=== PATIENT | female | born 1985 | race Two or more races ===

== ENCOUNTER 2023-09-10 01:31 | Emergency (ER) | payer MEDICAID ==
[~2023-09-10] VITALS: Ht 167.6 cm; Wt 94.1 kg
[~2023-09-10 01:31] MED LIST: DOXY-286 PO; METR375C PO
[2023-09-10] MEDS ORDERED: DIPH2.5T73 PO (02:34)
[2023-09-10 03:01] LABS: Urine Bacteria FEW /hpf (None Seen); Urine Blood Negative /uL (Negative); Urine Clarity Clear (Clear); Urine Color Light-Yellow (Yellow); Urine Hyaline Cast FEW /lpf (0 - 2); Urine Mucus FEW (None Seen); Urine Protein, UAD Negative (Negative); Urine Urobilinogen Normal (Negative); Urine WBC 10 /hpf (0 - 5)
[2023-09-10 03:20] VITALS: BP 137/86; PULSE 83; RESP 16; TEMP 98.3; O2SAT 99
[2023-09-10] MEDS: DIPHENOXYLATE W/ATROPINE 2.5 MG TAB PO ONE (03:23)
== END 2023-09-10 03:19 | disposition home or self-care (01) ==
LOC: ER 01:31
DX: R19.7 Diarrhea, unspecified (principal); E11.9 Type 2 diabetes mellitus without complications; E78.5 Hyperlipidemia, unspecified; Z79.899 Other long term (current) drug therapy
CPT/HCPCS: 81001

== ENCOUNTER 2024-05-22 19:12 | Inpatient (IN) | payer MEDICAID ==
[~2024-05-22] VITALS: Ht 167.6 cm; Wt 88.8 kg
[~2024-05-22 19:12] MED LIST changes: +DIPH2.5T73 PO
--- NOTE | 2024-05-22 19:44 | ED.PDOC ---
GI ASSESSMENT HPI Comments 38y M who presents to the ED for chief complaint of abdominal pain. Pt states she has been having abdominal pain with associated constipation for the past 2 days. Pt states her abdominal pain is pressure like in nature, constant, R side of abdomen, rating the pain 6/10, with no associated exacerbating or relieving factors. Pt has associated constipation, chills, rectal bleeding and subjective fevers. Pt otherwise denies any recent sick contacts or changes to diet. Pt otherwise denies any other symptoms at this time. Time Seen by MD: 19:37 Reviewed Notes: Nurses Notes, Medications, Allergies Allergies: Coded Allergies: NO KNOWN ALLERGIES (Unverified , 10/15/22) Home Meds Active Scripts Diphenoxylate W/ Atropine (Lomotil) 2.5 Mg Tab, 2 TAB PO QID PRN, #20 TAB Prov:ANDREY MCNEIL DO 09/10/23 Doxycycline Hyclate (DOXYCYCLINE HYCLATE) 100 Mg Tab, 1 TAB PO BID for 14 Days, #28 TAB Prov:ZAHIDA JOHNSON MD 04/10/23 Metronidazole (Flagyl) 375 Mg Cap, 500 MG PO BID for 14 Days, #28 CAP Prov:ZAHIDA JOHNSON MD 04/10/23 Information Source: Patient Mode of Arrival: Ambulatory Brought in by: self Timing: Days Duration: Since onset Prehospital treatment: None Quality: Other (pressure) Vomitus: None Stool: Normal Severity: Moderate Recent: None Recent Hx of: None Pain Location: RUQ, RLQ Modifying Factors: Nothing Associated sign and symptoms: Constipation, Abdominal Pain Past Medical History PAST MEDICAL HISTORY: DM, High Lipids, Thyroid Surgical History: Denies all surgeries [employer] History: Ovarian Cysts Family History Family History: Reviewed,noncontributory to illness Social History Smoker: Non-Smoker Alcohol: Denies ETOH Use Drugs: Denies Drug Use Lives In: Home Constitutional: reports: fever; denies: chills, diaphoresis, fatigue, malaise, sweats, weakness, others EENTM: denies: blurred vision, double vision, ear bleeding, ear discharge, ear drainage, ear pain, ear ringing, eye pain, eye redness, hearing loss, mouth pain, mouth swelling, nasal discharge, nose bleeding, nose congestion, nose pain, photophobia, tearing, throat pain, throat swelling, voice changes, others Respiratory: denies: cough, hemoptysis, orthopnea, SOB at rest, shortness of breath, SOB with excertion, stridor, wheezing, others Cardiovascular: denies: chest pain, dizzy spells, diaphoresis, Dyspnea on exertion, edema, irregular heart beat, left arm pain, lightheadedness, palpitations, PND, syncope, others Gastrointestinal: reports: abdominal pain, constipated, diarrhea; denies: abdomen distended, blood streaked bowels, dysphagia, difficulty swallowing, hematemesis, melena, nausea, poor appetite, poor fluid intake, rectal bleeding, rectal pain, vomiting, others Genitourinary: denies: abnormal vagina bleeding, burning, dyspareunia, dysuria, flank pain, frequency, hematuria, incontinence, pain, , vagina discharge, urgency, others Neurological: denies: dizziness, fainting, headache, left sided numbness, left sided weakness, numbness, paresthesia, pre-existing deficit, right sided numb ness, right sided weakness, seizure, speech problems, tingling, tremors, weakness, others Musculoskeletal: denies: back pain, gout, joint pain, joint swelling, muscle pain, muscle stiffness, neck pain, others Integumetry: denies: bruises, change in color, change in hair/nails, dryness, laceration, lesions, lumps, rash, wounds, others Allergic/Immunocompromised: denies: Difficulty Healing, Frequent Infections, Hives, Itching, others Hematologic/Lymphatic: denies: anemia, blood clots, easy bleeding, easy bruising, swollen glands, others Endocrine: denies: excessive hunger, excessive sweating, excessive thirst, excessive urination, flushing, intolerance to cold, intolerance to heat, unexplained weight gain, unexplained weight loss, others Psychiatric: denies: anxiety, bipolar disorder, depression, hopeless, panic disorder, schizophrenia, sleepless, suicidal, others All Other Systems: Reviewed and Negative Physical Exam General Appearance: Moderate Distress HEENT: Normal ENT Inspection, Pharynx Normal, TMs Normal Neck: Full Range of Motion, Non-Tender, Normal, Normal Inspection Respiratory: Chest Non-Tender, Lungs Clear, No Accessory Muscle Use, No Respiratory Distress, Normal Breath Sounds Cardiovascular: No Edema, No JVD, No Murmur, No Gallop, Normal Peripheral Pulses, Regular Rate/Rhythm Breast Exam: Deferred Gastrointestinal: No Organomegaly, No Pulsatile Mass, Normal Bowel Sounds, Soft, Suprapubic, Tenderness, Other (Right-sided slight tenderness) Genitalia: Deferred Pelvic: Deferred Rectal: Deferred Extremities: No calf tenderness, Normal capillary refill, Normal inspection, Normal range of motion, Non-tender, No pedal edema Musculoskeletal : Apperance: Normal Neurologic: Alert, bulk receiver II-XII nml as Tested, No Motor Deficits, Normal Affect, Normal Mood, No Sensory Deficits Cerebellar Function: Normal Reflexes: Normal Skin: Dry, Normal Color, Warm Lymphatic: No Adenopathy Was a procedure done? Was a procedure done?: No GI differential Dx Differential Diagnosis: Constipation, Gastritis/PUD, Gastroenteritis, GI hemorrhage, Pancreatitis, UTI, Stress Ulcer, Kidney Stone Other Differential Diagnosis hematochezia X-Ray, Labs, Meds, VS Vital Signs Date Time Temp Pulse Resp B/P (MAP) Pulse Ox O2 Delivery O2 Flow Rate FiO2 05/22/24 19:42 99.8 106 18 118/76 (90) 100 Lab Test 05/22/24 19:58 05/22/24 19:50 Range/Units Sodium Level Pending Potassium Level Pending Chloride Level Pending Carbon Dioxide Level Pending Anion Gap Pending Blood Urea Nitrogen Pending Creatinine Pending Glomerular Filtration Rate Calc Pending BUN/Creatinine Ratio Pending Serum Glucose Pending Calcium Level Pending Total Bilirubin Pending Aspartate Amino Transferase (AST) Pending Alanine Aminotransferase (ALT) Pending Alkaline Phosphatase Pending Total Protein Pending Albumin Pending Lipase Pending White Blood Count 14.8 H 4.4-10.8 10^3/uL Red Blood Count 4.59 4.0-5.20 10^6/uL Hemoglobin 11.7 L 12.2-16.2 g/dL Hematocrit 36.3 36.0-46.0 % Mean Corpuscular Volume 79.1 L 80.0-100.0 fL Mean Corpuscular Hemoglobin 25.4 L 28.0-32.0 pg Mean Corpuscular Hemoglobin Concent 32.2 32.0-36.0 g/dL Red Cell Distribution Width 17.4 H 11.8-14.3 % Platelet Count 340 140-450 10^3/uL Mean Platelet Volume 7.9 6.9-10.8 fL Neutrophils (%) (Auto) 77.7 37.0-80.0 % Lymphocytes (%) (Auto) 14.1 10.0-50.0 % Monocytes (%) (Auto) 7.5 0.0-12.0 % Eosinophils (%) (Auto) 0.4 0.0-7.0 % Basophils (%) (Auto) 0.3 0.0-2.0 % Neutrophils # (Auto) 11.5 H 1.6-8.6 10 ^3/uL Lymphocytes # (Auto) 2.1 0.4-5.4 10 ^3/uL Monocytes # (Auto) 1.1 0-1.3 10 ^3/uL Eosinophils # (Auto) 0.1 0-0.8 10 ^3/uL Basophils # (Auto) 0 0-0.2 10 ^3/uL Nucleated Red Blood Cells 0.0 % Urine Color Colorless Yellow Urine Clarity Turbid H Clear Urine pH 6.5 5.0-9.0 Urine Specific [place] 1.008 1.001-1.035 Urine Protein Trace H Negative Urine Ketones Negative Negative Urine Blood Trace H Negative /uL Urine Nitrite Negative Negative Urine Bilirubin Negative Negative Urine Urobilinogen Normal Negative mg/dL Urine Leukocyte Esterase 3+ Negative /uL Urine RBC 4 0 - 4 /hpf Urine Microscopic WBC 36 H 0-5 /HPF Urine Squamous Epithelial Cells Many <5 /hpf Urine Bacteria Few H None Seen /hpf Urine Yeast (Budding) Occasional None Seen /hpf Urine Glucose Normal Normal mg/dL Exam: CT CT AB PEL WO CON-NO ORAL OR IV IMPRESSION: Mild right renal upper pole asymmetric perinephric fat stranding with mild stranding of the left renal pelvis and left proximal ureter. Correlate for infec tious process. Mild wall thickening of the urinary bladder which is most likely from inadequate distension. Correlation with urinalysis is recommended to exclude cystitis. Additional nonacute findings as above. THE PATIENT'S CBC SHOWS AN ELEVATED WHITE BLOOD CELL COUNT OF 14.8 THE REST OF THE CBC IS WITHIN LIMITS THE URINE TEST FOR INFECTION THE PATIENT IS HEMOGLOBIN AND HEMATOCRIT SHOWS MILD ANEMIA AT THIS TIME, THE PATIENT WAS BEING ADMITTED TO THE HOSPITALIST The patient was being started on Rocephin 1 g IV piggyback We have explained to the patient that this is acute pyelonephritis The patient was being admitted Images Reviewed?: Images reviewed and evaluated by me Time of 1ST Reevaluation: 20:05 Reevaluation 1ST: Unchanged Patient Education/Counseling: Diagnosis, Treatment, Prognosis Family Education/Counseling: No Family Present Departure 1 Departure Time of Disposition: 20:45 Impression: Primary Impression: Acute pyelonephritis Disposition: ADMITTED INPATIENT Admit to: Med Surg Condition: Fair Critical Care Note Critical Care Time?: No Stability Stability form required: Yes Unstable for transfer: ED Physician Assesment (Clinical assesment) Heart Score Heart Score: Heart Score Response (Comments) Value History N/A 0 EKG N/A 0 Age N/A 0 Risk Factors N/A 0 Troponin N/A 0 Total 0 I personally scribed for GENI COBIAN MD ([email or web address]) on 05/22/24 at 19:44. Electronically submitted by Isidoro Kam ([email or web address]). I personally scribed for GENI COBIAN MD ([email or web address]) on 05/22/24 at 20:18. Electronically submitted by Isidoro RG). GENI COBIAN MD May 22, 2024 19:44
[2024-05-22 20:04] LABS: Urine Bacteria FEW /hpf (None Seen); Urine Blood TRACE /uL (Negative); Urine Budding Yeast OCCASIONAL /hpf (None Seen); Urine Clarity Turbid (Clear); Urine Color Colorless (Yellow); Urine Protein, UAD TRACE (Negative); Urine Specific Gravity 1.008 (1.001-1.035); Urine Squamous Epithelial Cell MANY /hpf (<5); Urine Urobilinogen Normal (Negative); Urine WBC 36 /HPF (0-5); Urine pH 6.5 (5.0-9.0)
--- NOTE | 2024-05-22 20:09 | DVH ---
Exam: CT CT AB PEL WO CON-NO ORAL OR IV History: pain Comparison Study: 04/10/2023 TECHNIQUE: Multidetector CT of the abdomen and pelvis without contrast. Axial, coronal and sagittal m ultiplanar reformats were obtained from the axial data set by the technologist. Radiation Dose Information: CT Dose: CTDI volume is 11.39 mGy. Dose-length product is 608.23 mGy*cm FINDINGS: Bibasilar atelectasis. Partially visualized heart is unremarkable. Mild hepatomegaly. Otherwise, liver, spleen, gallbladder, pancreas and adrenal glands unremarkable. 2 cm left renal upper pole cyst. Mild bilateral hydro nephrosis with no obstructing calculus noted. M ild right renal upper pole asymmetric perinephric fat stranding. Mild fat stranding over the left julius al pelvis and proximal ureter. Mild wall thickening of the urinary bladder which is most likely from inadequate distension. Mild prominence of the uterus. Bilateral adnexa are unremarkable. Small hiatal hernia. Stomach is unremarkable. Small bowel loops unremarkable. Appendix is unremarkab le. Small to moderate amount of fecal material within the colon. E No evidence of intraperitoneal free air or free fluid. No evidence of aortic aneurysm. No significant lymphadenopathy. Tiny fat containing umbilical hernia. The soft tissues are otherwise unremarkable. 9 mm hemangioma o f the superior anterior L4 vertebral body. No significant degenerative changes of the lumbar spine. IMPRESSION: Mild right renal upper pole asymmetric perinephric fat stranding with mild stranding of the left martha l pelvis and left proximal ureter. Correlate for infectious process. Mild wall thickening of the urinary bladder which is most likely from inadequate distension. Correlat ion with urinalysis is recommended to exclude cystitis. Additional nonacute findings as above.
[2024-05-22 20:26] LABS: Basophils # (auto) 0 10 ^3/uL (0-0.2); Basophils % (auto) 0.3 % (0.0-2.0); Eosinophils # (auto) 0.1 10 ^3/uL (0-0.8); Eosinophils % (auto) 0.4 % (0.0-7.0); Hematocrit 36.3 % (36.0-46.0); Hemoglobin 11.7 g/dL (12.2-16.2); Lymphocytes # (auto) 2.1 10 ^3/uL (0.4-5.4); Lymphocytes % (auto) 14.1 % (10.0-50.0); Mean Corpuscular Hemoglobin 25.4 pg (28.0-32.0); Mean Corpuscular Hgb Conc. 32.2 g/dL (32.0-36.0); Mean Corpuscular Volume 79.1 fL (80.0-100.0); Monocytes # (auto) 1.1 10 ^3/uL (0-1.3); Monocytes % (auto) 7.5 % (0.0-12.0); Neutrophils # (auto) 11.5 10 ^3/uL (1.6-8.6); Neutrophils % (auto) 77.7 % (37.0-80.0); Platelet Count (auto) 340 10^3/uL (140-450); Red Blood Cells 4.59 10^6/uL (4.0-5.20); Red Cell Distribution Width 17.4 % (11.8-14.3); White Blood Cell 14.8 10^3/uL (4.4-10.8)
[2024-05-22 20:38] LABS: Alanine Aminotransferase 23 U/L (7-40); Anion Gap 9 (5-15); Aspartate Aminotransferase 18 U/L (13-40); BUN/Creatinine Ratio 9.6 (10.0-20.0); Calcium 9.1 mg/dL (8.7-10.4); Carbon Dioxide 21 mmol/L (20-31); Chloride 104 mmol/L (98-107); Lipase 30 U/L (12-53); Potassium 3.6 mmol/L (3.5-5.1)
[2024-05-22 20:39] LABS: Bilirubin, Total 0.8 mg/dL (0.2-1.0); Total Protein 6.6 g/dL (5.7-8.2)
[2024-05-22 20:46] LABS: Alkaline Phosphatase 149 U/L (46-116); Blood Urea Nitrogen 9 mg/dL (9-23); Glucose 131 mg/dL (74-106); Sodium 134 mmol/L (136-145)
[2024-05-22 21:00] VITALS: PULSE 115; RESP 18; O2SAT 97
[2024-05-22] MEDS: ACETAMINOPHEN 500 MG TAB or CAP PO ONE (21:13)
[2024-05-22] MEDS: ONDANSETRON HCL 4 MG/2 ML VIAL IV ONE (21:16)
[2024-05-22] MEDS: MORPHINE SULFATE 4 MG/ML SYR/VIAL IV ONE (21:16)
[2024-05-22] MEDS: cefTRIAXone 1GM/50ML D5W 50 ML IV ONE (21:16)
--- NOTE | 2024-05-22 23:45 | DVHHPRES ---
History of Present Illness Resident Creating Document: LETICIA OLIVAS RESDIENT History of Present Illness This is a 38-year-old female with past medical history of hypothyroidism, STI (in 2022), hemorrhoids (since 11 years) and chronic constipation, came to the hospital due to abdominal pain since 4 days. Per patient, she has been more constipated recently and had developed upper abdominal pain since 4 days which has been more localized to the right flank since 2 days. Pain is constant, dull pain in nature, 6/10 in intensity, with no specific exacerbating or relieving factors. She also reports fever, chills, and fresh rectal bleeding during bowel movement. Patient denies cough, shortness of breaths, chest pain, diarrhea, dysuria, or any recent sick contact. PMHx: Hypothyroidism, STI, hemorrhoids, and chronic constipation PSHx: Abdominal wall Hernia repair Social history: Patient lives with family at home, smokes cigarette, denies any other drug use. Home medication: Levothyroxine 25 mcg daily Allergic history: No known allergies Review of Systems Review of Systems General: patient denies fever, fatigue, weaknes, sweating, any recent changes in appetite and weight HEENT: No headaches, visiual changes, hearing loss, tinnitus, nasal congestion and discharge, and sore throat. Cardiovascular: Denies chest pain, palpitations, dyspnea on exertion, orthopnea, or claudication. Respiratory: No cough, and wheezing. Gastrointestinal: Reports right flank pain, constipation Genitourinary: No dysuria, hematuria, discharge, frequency, urgency, nocturia, incontinence, and urinary retention. Endocrine: No heat or cold intolerance, polydipsia, polyuria, and polyphagia. Neurological: No dizziness, extremity weakness and numbness, tremors, gait disturbance, seizures, and memory impairment. Psychiatric: Denies depression, anxiety,or insomnia. Musculoskeletal: Denies neck pain, stiffness and swelling, back pain, muscle weakness, joint pain, stiffness, swelling, or limited range of motion. Skin: No rashes, itching, skin lesion, changes in hair, nail, skin texture and breast. Hematologic/Lymphatic: Denies easy bruising, bleeding tendencies, or lymph node enlargement. Allergies: Coded Allergies: NO KNOWN ALLERGIES (Unverified , 10/15/22) Exam Vital Signs Vital Signs Date Time Temp Pulse Resp B/P (MAP) Pulse Ox O2 Delivery O2 Flow Rate FiO2 05/22/24 23:20 99.6 85 16 92/66 (75) 97 99.6 05/22/24 21:08 Room Air 05/22/24 21:00 0 21 Exam General Appearance: Alert, Oriented X3, Cooperative, No acute distress HEENT: Atraumatic, PERRLA, EOMI, Mucous membrane moist/pink Respiratory: Clear to auscultation, Normal air movement Cardiovascular: Regular rate, Normal S1, Normal S2, No murmurs, no chest wall tenderness Abdominal: Mild Suprapubic, right flank and right costophrenic angle tenderness Extremities: No clubbing, No cyanosis, No edema, Normal pulses, No tenderness/swelling Skin: No rashes, No breakdown, No significant lesion Neuro: Normal gait, Normal speech, Strength at 5/5 X4 ext, Normal tone, Sensat ion intact, Cranial nerves 3-12 NL, Reflexes 2+ Psych/Mental Status: Mental status NL, Mood NL Labs/Xrays Labs Test 05/22/24 19:58 05/22/24 19:50 Range/Units Sodium Level 134 L 136-145 mmol/L Potassium Level 3.6 3.5-5.1 mmol/L Chloride Level 104 98-107 mmol/L Carbon Dioxide Level 21 20-31 mmol/L Anion Gap 9 5-15 Blood Urea Nitrogen 9 9-23 mg/dL Creatinine 0.94 0.550-1.02 mg/dL Glomerular Filtration Rate Calc 80 >90 mL/min BUN/Creatinine Ratio 9.6 L 10.0-20.0 Serum Glucose 131 H 74-106 mg/dL Calcium Level 9.1 8.7-10.4 mg/dL Total Bilirubin 0.8 0.2-1.0 mg/dL Aspartate Amino Transferase (AST) 18 13-40 U/L Alanine Aminotransferase (ALT) 23 7-40 U/L Alkaline Phosphatase 149 H 46-116 U/L Total Protein 6.6 5.7-8.2 g/dL Albumin 4.0 3.2-4.8 g/dL Lipase 30 12-53 U/L White Blood Count 14.8 H 4.4-10.8 10^3/uL Red Blood Count 4.59 4.0-5.20 10^6/uL Hemoglobin 11.7 L 12.2-16.2 g/dL Hematocrit 36.3 36.0-46.0 % Mean Corpuscular Volume 79.1 L 80.0-100.0 fL Mean Corpuscular Hemoglobin 25.4 L 28.0-32.0 pg Mean Corpuscular Hemoglobin Concent 32.2 32.0-36.0 g/dL Red Cell Distribution Width 17.4 H 11.8-14.3 % Platelet Count 340 140-450 10^3/uL Mean Platelet Volume 7.9 6.9-10.8 fL Neutrophils (%) (Auto) 77.7 37.0-80.0 % Lymphocytes (%) (Auto) 14.1 10.0-50.0 % Monocytes (%) (Auto) 7.5 0.0-12.0 % Eosinophils (%) (Auto) 0.4 0.0-7.0 % Basophils (%) (Auto) 0.3 0.0-2.0 % Neutrophils # (Auto) 11.5 H 1.6-8.6 10 ^3/uL Lymphocytes # (Auto) 2.1 0.4-5.4 10 ^3/uL Monocytes # (Auto) 1.1 0-1.3 10 ^3/uL Eosinophils # (Auto) 0.1 0-0.8 10 ^3/uL Basophils # (Auto) 0 0-0.2 10 ^3/uL Nucleated Red Blood Cells 0.0 % Urine Color Colorless Yellow Urine Clarity Turbid H Clear Urine pH 6.5 5.0-9.0 Urine Specific [place] 1.008 1.001-1.035 Urine Protein Trace H Negative Urine Ketones Negative Negative Urine Blood Trace H Negative /uL Urine Nitrite Negative Negative Urine Bilirubin Negative Negative Urine Urobilinogen Normal Negative mg/dL Urine Leukocyte Esterase 3+ Negative /uL Urine RBC 4 0 - 4 /hpf Urine Microscopic WBC 36 H 0-5 /HPF Urine Squamous Epithelial Cells Many <5 /hpf Urine Bacteria Few H None Seen /hpf Urine Yeast (Budding) Occasional None Seen /hpf Urine Glucose Normal Normal mg/dL Assessment/Plan Assessment/Plan Sepsis, likely due to UTI Complicated UTI, pyelonephritis UA shows UTI picture CT scan showed mild right renal upper pole asymmetry perinephric fat stranding with mild stranding of the left renal pelvis and left proximal ureter Patient had a temperature of 101.9, MS 115 and WBCs raised at 14.8 Urine and blood culture Empiric antibiotic, ceftriaxone IV normal saline History of hypothyroidism Check TSH Continue levothyroxine 25 mcg daily Constipation MiraLax History of hemorrhoids, likely grade 2 Per patient, she has a bulging during bowel movement which reduces by itself Possible uterine prolapse Per patient, she has sensation of foreign body in vagina, specifically during 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 Case discussed with Dr. Parra Plan discussed with: Patient, Other My Orders Orders - LETICIA OLIVAS Procedure Category Date Status Time Admit ADMIT 05/22/24 Verified 23:44 Stat Ekg For Chest [facility] 05/22/24 Verified Pain 23:44 Notify Md Of Changes KENNETH 05/22/24 Verified From Base 23:44 Date of Service: May 22, 2024 Billing Provider: NIMCO PARRA MD Common Visit Codes: [id number] INP/OBS CARE (HIGH) LETICIA OLIVAS May 22, 2024 23:45 NIMCO PARRA MD May 23, 2024 23:10
[2024-05-23] VITALS (8 sets, daily range): BP systolic 86–116; BP diastolic 42–71; PULSE 57–73; RESP 16–22; TEMP 97.6–98.7; O2SAT 97–100
[2024-05-23] MEDS ORDERED: POLYETHYLENE GLYCOL 17 GM PWDR PO PRN (01:00)
[2024-05-23] MEDS: SODIUM CHLORIDE 0.9% 1,000 ML IV SCH (01:48)
[2024-05-23] MEDS: SODIUM CHLORIDE 0.9% 2,000 ML IV ONE (01:48)
[2024-05-23 01:56] LABS: Amphetamine Screen, Urine Pos (NEGATIVE); Barbiturate Scree,Urine Neg (NEGATIVE); Benzodiazephine Screen, Urine Neg (NEGATIVE); Cannabinoid Screen, Urine Neg (NEGATIVE); Cocaine Screen, Urine Neg (NEGATIVE); Opiate Scree,Urine Neg (NEGATIVE); Phencyclidine Screen, Urine Neg (NEGATIVE)
[2024-05-23] MEDS: POLYETHYLENE GLYCOL 17 GM PWDR PO ONE (02:06)
[2024-05-23 02:23] LABS: Alanine Aminotransferase 18 U/L (7-40); Albumin 3.9 g/dL (3.2-4.8); Anion Gap 7 (5-15); BUN/Creatinine Ratio 9.6 (10.0-20.0); Bilirubin, Total 0.7 mg/dL (0.2-1.0); Blood Urea Nitrogen 10 mg/dL (9-23); Calcium 8.9 mg/dL (8.7-10.4); Carbon Dioxide 23 mmol/L (20-31); Chloride 103 mmol/L (98-107); Glucose 106 mg/dL (74-106); Total Protein 6.6 g/dL (5.7-8.2)
[2024-05-23 02:26] LABS: Thyroid Stimulating Hormone 2.84 uIU/mL (0.55-4.78)
[2024-05-23 02:32] LABS: Triglycerides 105 mg/dL (< 150)
[2024-05-23 02:33] LABS: LDL Cholesterol 77 mg/dL (< 100)
[2024-05-23 02:34] LABS: Cholesterol 137 mg/dL (< 200); HDL Cholesterol 46 mg/dL (40-59)
[2024-05-23 02:58] LABS: Alkaline Phosphatase 128 U/L (46-116); Aspartate Aminotransferase 12 U/L (13-40); Beta HCG, Quantitative 0.3 mIU/mL (1.5-4.2); Potassium 3.4 mmol/L (3.5-5.1); Sodium 133 mmol/L (136-145)
[2024-05-23 05:25] LABS: Basophils # (auto) 0 10 ^3/uL (0-0.2); Basophils % (auto) 0.1 % (0.0-2.0); Eosinophils # (auto) 0.1 10 ^3/uL (0-0.8); Eosinophils % (auto) 1.2 % (0.0-7.0); Hematocrit 34.3 % (36.0-46.0); Hemoglobin 10.9 g/dL (12.2-16.2); Lymphocytes # (auto) 2.2 10 ^3/uL (0.4-5.4); Lymphocytes % (auto) 19.3 % (10.0-50.0); Mean Corpuscular Hemoglobin 25.4 pg (28.0-32.0); Mean Corpuscular Hgb Conc. 31.9 g/dL (32.0-36.0); Mean Corpuscular Volume 79.6 fL (80.0-100.0); Monocytes # (auto) 1.2 10 ^3/uL (0-1.3); Monocytes % (auto) 10.6 % (0.0-12.0); Neutrophils % (auto) 68.8 % (37.0-80.0); Platelet Count (auto) 312 10^3/uL (140-450); Red Blood Cells 4.31 10^6/uL (4.0-5.20); Red Cell Distribution Width 17.2 % (11.8-14.3); White Blood Cell 11.6 10^3/uL (4.4-10.8)
[2024-05-23] MEDS: POTASSIUM EFFERVESENT TAB 25 MEQ GT ONE (05:35)
[2024-05-23] MEDS: SODIUM CHLORIDE 0.9% 500 ML IV ONE (05:36)
[2024-05-23] MEDS: LEVOTHYROXINE SODIUM 25 MCG TAB PO SCH (05:36)
[2024-05-23] MEDS: ACETAMINOPHEN 325 MG TAB PO PRN (05:40)
[2024-05-23 05:42] LABS: % Iron Saturation 4.5 % (15-50); Folate (Folic Acid) 8.17 ng/mL (>5.38)
[2024-05-23] MEDS: SODIUM CHLORIDE 0.9% 1,000 ML IV ONE (07:57)
[2024-05-23] MEDS: HYDROcodone-ACET 5/325MG TAB PO PRN (12:12)
[2024-05-23] MEDS ORDERED: LEVO25TA6 PO (12:55)
[2024-05-23] MEDS: CEFEPIME 1GM/ 50ML 50 ML IV ONE (13:45)
--- NOTE | 2024-05-23 15:19 | DVHPNRES ---
Progress Note Date Seen: May 23, 2024 Resident Creating Document: STEVEN RODRIGEZ RESIDENT Medical Necessity Reason Pt with a Central, PICC or Fol: No Subjective Review of Systems This is a 38 year-old female with past medical history of hypothyroidism, STI, hemorrhoid and chronic constipation presented to the ED for abdominal pain, fever, chills ,nausea and vomiting for 2 days prior to this admission. patient stated that she has bilateral flank pain started 2 days ago which was 8/10, intermittent in nature radiates to the lower abdomen and associated with fever, chills, nausea and vomiting. patient also complaining of frequency, urgency dysuria and burning sensation of urine for the same duration. Patient was seen and examined on the bedside. She is alert oriented x3. Complains of bilateral flank pain and nausea. No other active complaints Constitutional: No: Fever, Chills, Sweats, Weakness, Malaise, Other Eyes: No: Pain, Vision change, Conjunctivae inflammation, Eyelid inflammation, Other, Redness ENT: No: Ear pain, Ear discharge, Nose pain, Nose discharge, Nose congestion, Mouth pain, Mouth swelling, Throat pain, Throat swelling, Other Respiratory: Shortness of breath, improving No: Cough, Dry,Wheezing, Hemoptysis, Pleuritic Pain, Sputum, Wheezing, Other Cardiovascular: No: Chest Pain, Palpitations, Orthopnea, Paroxysmal Noc. Dyspnea, Edema, Lt Headedness, Other Gastrointestinal: Abdominal Pain, No: Nausea, Vomiting, Diarrhea, Constipation, Melena, Hematochezia, Other Musculoskeletal: No: other, neck pain, shoulder pain, arm pain, back pain, hand pain, leg pain, foot pain Neurological:; No: Weakness, Numbness, Incoordination, Change in speech, Confusion, Seizures Objective vital signs Vital Sign Date Time Temp Pulse Resp B/P (MAP) Pulse Ox O2 Delivery O2 Flow Rate FiO2 05/23/24 12:00 98.6 70 22 86/42 (57) 98 98.6 05/23/24 00:46 Room Air* 0 21 Total Intake and Output 05/22/24 05/22/24 05/23/24 15:00 23:00 07:00 Intake Total 50 ml 500 ml Balance 50 ml 500 ml medications Current Medications Medications Dose Ordered Sig/Shruthi Route Start Time Stop Time Status Last Admin Dose Admin Levothyroxine Sodium 25 mcg QAM@0600 PO 1/24/25 06:00 05/23/24 05:36 25 MCG Sodium Chloride 1,000 ml @ 100 mls/hr Q10H IV 05/23/24 01:00 05/23/24 11:00 100 MLS/HR Acetaminophen/ Hydrocodone Bitart 1 tab Q4HPRN PRN PO 05/23/24 01:00 05/23/24 12:12 1 TAB Acetaminophen 650 mg Q6HP PRN PO 05/23/24 01:00 05/23/24 05:40 650 MG Polyethylene Glycol 17 gm DAILYPRN PRN PO 05/23/24 01:00 Cefepime HCl 50 ml @ 12.5 mls/hr Q8HR IV 05/23/24 22:00 Azithromycin 250 ml @ 125 mls/hr DAILY IV 05/23/24 15:00 Examination Physical examination: General Appearance: Alert, Oriented X3, Cooperative, No acute distress HEENT: Atraumatic, PERRLA, EOMI, Mucous membrane moist/pink Respiratory: Clear to auscultation, Normal air movement Cardiovascular: Regular rate, Normal S1, Normal S2, No murmurs, no chest wall tenderness Abdominal: Bilateral CVA tenderness, Normal bowel sounds, Soft, No hepatospenomegaly, No masses Extremities: No clubbing, No cyanosis, No edema, Normal pulses, No tenderness/swelling Skin: No rashes, No breakdown, No significant lesion Neuro: Normal gait, Normal speech, Strength at 5/5 X4 ext, Normal tone, Sensation intact, grossly intact cranial nerves. Psych/Mental Status: Mental status NL, Mood NL laboratory and microbiology Laboratory Tests 05/23/24 04:32 05/23/24 01:48 Test 05/23/24 01:48 Range/Units Serum Glucose 106 74-106 mg/dL Labs and/or images reviewed: Labs reviewed by me, Image(s) reviewed by me Problem List/Assessment/Plan Problem List/Assessment/Plan Assessment/Plan # Sepsis, likely due to UTI # Acute complicated UTI/ pyelonephritis # Hypotension seconary to above - Patient presented with elevated temparature and leucocytosis - U/A consistent with UTI - CT scan showed mild right renal upper pole asymmetry perinephric fat stranding with mild stranding of the left renal pelvis and left proximal ureter - Ordered urine bacterial culture and blood culture - IV normal saline at 100 mL/hour - IV cefepime 1 gm b.i.d and IV azithromycin 500 mg daily # History of hypothyroidism - Continue levothyroxine 25 mcg at q.a.m. # History of STI - Culture of vaginal swab on 04/10/23 demonstrated Neisseria gonorrhoeae - Ordered Chlamydia/GC nucleic acid amplification test - Consulted Obgyn # History of hemorrhoids, likely grade 2 # Possible chronic iron defieciency anaemia due to hemorrhoidal bleeding - Per patient, she has a bulging during bowel movement which reduces by itself - Miralax 17gm daily PRN - Iron panel demonstrated low iron, normal TIBC, low saturation and normal ferritin. - Consulted GI # Methamphetamine use disorder - UDS is positive for amphetamine - Counseled patient regarding drug abuse and rehabilitation . CODE STATUS: Goal of care discussed for more than 31 minutes, full code DISPOSITION: Med/surge Patient's status and paln discussed with the patient. Case discussed with Dr. Jimenez Plan discussed with: Patient, Other My Orders My Orders Orders - STEVEN RODRIGEZ Procedure Category Date Status Time Cefepime 1gm/ 50ml PHA 05/23/24 In Process (Maxipime 1gm/50ml) 22:00 Azithromycin 500mg/ PHA 05/23/24 In Process 250ml (Zithromax 50 15:00 Date of Service: May 23, 2024 Billing Provider: SALMA CORREIA MD Common Visit Codes: [id number] INP/OBS CARE(HIGH) STEVEN RODRIGEZ May 23, 2024 15:19 SALMA CORREIA MD May 26, 2024 09:54
[2024-05-23] MEDS: AZITHROMYCIN 500MG/ 250ML 250 ML IV SCH (17:00)
--- NOTE | 2024-05-23 17:56 | DVHINCON2 ---
Date of service: May 23, 2024 Referring Physician Ambar Parra MD Reason for Consultation Uterine Prolapse History of Present Illness HPI 38y SAB1 LMP 05/09/24. Admitted with acute pyelonephritis Patient endorses frequent UTI's, chronic constipation and hemorrhoids. She is seldom sexually active. Denies dyspareunia Reports sensations of "foreign body" in vagina, worse when straining to defecate. Denies urinary retention, need to splint to empty bladder or sensation of incomplete voiding. Denies any urinary incontinence symptoms. Last PAP 2018, denies any abnormal cervical cytology Hx of Chlamydia/gonorrhea x 2 yr ago (treated) Home Meds Active Scripts Diphenoxylate W/ Atropine (Lomotil) 2.5 Mg Tab, 2 TAB PO QID PRN, #20 TAB Prov:ANDREY MCNEIL DO 09/10/23 Doxycycline Hyclate (DOXYCYCLINE HYCLATE) 100 Mg Tab, 1 TAB PO BID for 14 Days, #28 TAB Prov:ZAHIDA JOHNSON MD 04/10/23 Metronidazole (Flagyl) 375 Mg Cap, 500 MG PO BID for 14 Days, #28 CAP Prov:ZAHIDA JOHNSON MD 04/10/23 Reported Medications Levothyroxine Sodium (Levothyroxine Sodium) 25 Mcg Tab, 1 TAB PO DAILY, #30 TAB 5 Refills 05/23/24 Past Medical History Cardiac: No pertinent Hx Pulmonary: No pertinent Hx Central Nervous System: No pertinent Hx GI: Constipation, Hemorrhoids Hemotology/Oncology: No pertinent Hx Hepatobiliary: No pertinent Hx Psychiatric: No pertinent Hx Musculoskeletal: No pertinent Hx Rheumotologic: No pertinent Hx Infectious Disease: Chladmydia, Gonorrhea ENT: No pertinent Hx Renal/: UTI Endocrine: Hypothyroidism Past Surgical History: Other (D&C) Family History: No pertinent Hx Patient Family History: Cardiovascular disease G8 FATHER Diabetes mellitus G8 MOTHER Smoker: No Hx (Negative) Alocohol: None Drugs: Amphetimines Lives with: With family Review of Systems Constitutional: Chills, Diaphoresis, Fever Ears, Nose, & Throat: No symptom reported Eyes: No symptom reported Pulmonary/Respiratory: No symptom reported Cardiovascular: No symptom reported Gastrointestinal: Abdominal Pain, Constipation Genitourinary: Dysuria, Frequency, Pain Musculoskeletal: No symptom reported Skin: No symptom reported Psychiatric: No symptom reported Endocrine: No symptom reported Hemotologic/Lymphatic: No symptom reported H&P Exam Vital Signs Vital Signs Date Time Temp Pulse Resp B/P (MAP) Pulse Ox O2 Delivery O2 Flow Rate FiO2 05/23/24 17:22 97.6 67 18 105/60 (75) 97 97.6 05/23/24 00:46 Room Air* 0 21 General Appeara: Well developed, Well nourished, Normal Appearance Head Exam: Normal inspection Neck Exam: Normal inspection Eye Exam: bilateral eye PERRL Mouth: Normal Inspection Pulmonary/Respiratory: Normal inspection Cardiovascular/Chest: Normal inspection Abdominal Exam: Soft, No tenderness Abdominal Pain Onset Location: Flank Rectal Exam: Deferred Pelvic Exam: External exam normal, Bimanual exam normal, Discharge, Tender w/ cervical motion (Absent, NO CMT), Other (mild cystocele,rectocele (grade 1). No uterine prolapse. 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 Exam: Normal hearing, Normal speech, PERRL Appearance: Appropriate appearance, Appropriate insight Thoughts/Psych: Normal thought pattern Labs/Xrays Labs Test 05/23/24 04:32 05/23/24 01:48 05/22/24 19:58 05/22/24 19:50 Range/Units White Blood Count 11.6 H 4.4-10.8 10^3/uL Red Blood Count 4.31 4.0-5.20 10^6/uL Hemoglobin 10.9 L 12.2-16.2 g/dL Hematocrit 34.3 L 36.0-46.0 % Mean Corpuscular Volume 79.6 L 80.0-100.0 fL Mean Corpuscular Hemoglobin 25.4 L 28.0-32.0 pg Mean Corpuscular Hemoglobin Concent 31.9 L 32.0-36.0 g/dL Red Cell Distribution Width 17.2 H 11.8-14.3 % Platelet Count 312 140-450 10^3/uL Mean Platelet Volume 7.8 6.9-10.8 fL Neutrophils (%) (Auto) 68.8 37.0-80.0 % Lymphocytes (%) (Auto) 19.3 10.0-50.0 % Monocytes (%) (Auto) 10.6 0.0-12.0 % Eosinophils (%) (Auto) 1.2 0.0-7.0 % Basophils (%) (Auto) 0.1 0.0-2.0 % Neutrophils # (Auto) 8.0 1.6-8.6 10 ^3/uL Lymphocytes # (Auto) 2.2 0.4-5.4 10 ^3/uL Monocytes # (Auto) 1.2 0-1.3 10 ^3/uL Eosinophils # (Auto) 0.1 0-0.8 10 ^3/uL Basophils # (Auto) 0 0-0.2 10 ^3/uL Nucleated Red Blood Cells 0.0 % Hemoglobin A1c 5.9 H <5.7 % A1C Iron Level 15 L 50-170 ug/dL Total Iron Binding Capacity 331 250-425 ug/dL Percent Iron Saturation 4.5 L 15-50 % Ferritin 51.2 10-291 ng/mL Vitamin B12 Level 288 211-911 pg/mL Folic Acid 8.17 >5.38 ng/mL Sodium Level 133 L 136-145 mmol/L Potassium Level 3.4 L 3.5-5.1 mmol/L Chloride Level 103 98-107 mmol/L Carbon Dioxide Level 23 20-31 mmol/L Anion Gap 7 5-15 Blood Urea Nitrogen 10 9-23 mg/dL Creatinine 1.04 H 0.550-1.02 mg/dL Glomerular Filtration Rate Calc 71 >90 mL/min BUN/Creatinine Ratio 9.6 L 10.0-20.0 Serum Glucose 106 74-106 mg/dL Lactic Acid Level 0.6 0.4-2.0 mmol/L Calcium Level 8.9 8.7-10.4 mg/dL Total Bilirubin 0.7 0.2-1.0 mg/dL Aspartate Amino Transferase (AST) 12 L 13-40 U/L Alanine Aminotransferase (ALT) 18 7-40 U/L Alkaline Phosphatase 128 H 46-116 U/L Total Protein 6.6 5.7-8.2 g/dL Albumin 3.9 3.2-4.8 g/dL Triglycerides Level 105 < 150 mg/dL Cholesterol Level 137 < 200 mg/dL LDL Cholesterol 77 < 100 mg/dL HDL Cholesterol 46 40-59 mg/dL Thyroid Stimulating Hormone (TSH) 2.84 0.55-4.78 uIU/mL Beta HCG, Quantitative 0.3 L 1.5-4.2 mIU/mL Lipase 30 12-53 U/L Urine Color Colorless Yellow Urine Clarity Turbid H Clear Urine pH 6.5 5.0-9.0 Urine Specific [place] 1.008 1.001-1.035 Urine Protein Trace H Negative Urine Ketones Negative Negative Urine Blood Trace H Negative /uL Urine Nitrite Negative Negative Urine Bilirubin Negative Negative Urine Urobilinogen Normal Negative mg/dL Urine Leukocyte Esterase 3+ Negative /uL Urine RBC 4 0 - 4 /hpf Urine Microscopic WBC 36 H 0-5 /HPF Urine Squamous Epithelial Cells Many <5 /hpf Urine Bacteria Few H None Seen /hpf Urine Yeast (Budding) Occasional None Seen /hpf Urine Glucose Normal Normal mg/dL Urine Opiates Screen Neg NEGATIVE Urine Fentanyl Screen Neg NEGATIVE Urine Barbiturates Screen Neg NEGATIVE Urine Phencyclidine Screen Neg NEGATIVE Urine Amphetamines Screen Pos NEGATIVE Urine Benzodiazepines Screen Neg NEGATIVE Urine Cocaine Screen Neg NEGATIVE Urine Cannabinoids Screen Neg NEGATIVE Assessment/Plan Admitting Diagnosis: 1. Acute Pyelonephritis 2. Mild cystocele/rectocele. no uterine prolapse 3. Hx of hemorrhoids and chronic constipation Plan No acute heel nail rasper intervention indicated at this time recommend f/u in [facility] clinic for speculum exam Kegel exercises and pelvic floor PT discussed with patient suggest outpatient UROLOGY eval for hx of frequent UTI, r/o urinary retention. [facility] WILL SIGN OFF Plan discussed with: Patient Date of Service: May 23, 2024 Billing Provider: BYRON MENA DO Common Visit Codes: CONSULT ONLY Consultation Codes: [id number] CONSULT <45MIN BYRON MENA DO May 23, 2024 17:56
--- NOTE | 2024-05-23 18:35 | DVHINCON2 ---
GI Consult Consult Note Date of Consultation: May 23, 2024 Chief Complaint: Hemorrhoids and abdominal pain Referring Physician:Nova H&P: Patient is a 38-year-old female with no significant past medical history admitted with abdominal pain, hypothyroidism, constipation, history of hemorrhoids and occasional rectal bleeding. GI consultation was obtained for evaluation for hemorrhoids. Patient states that the hemorrhoids have gone away. She complains of abdominal pain and chronic constipation. She has was scheduled for outpatient colonoscopy but has not yet done this. Patient denies fevers or chills chest pain or shortness of breath. Patient was evaluated by studio assistant, found to have cystocele/rectocele. Past Medical History: Hypothyroidism Past Surgical History: Hernia repair Social History: NO smoking, drinking ETOH and use of illegal drugs. Family History: No gastrointestinal diseases or malignancies Current Medications Medications (Trade) Dose Ordered Sig/Shruthi Route PRN Reason Start Time Stop Time Status Last Admin Levothyroxine Sodium (Synthroid Tablet) 25 mcg QAM@0600 PO 05/23/24 06:00 05/23/24 05:36 Ceftriaxone Sodium 50 ml @ 100 mls/hr DAILY@2100 IV 05/23/24 21:00 05/23/24 12:44 DC Sodium Chloride 1,000 ml @ 100 mls/hr Q10H IV 05/23/24 01:00 05/23/24 11:00 Acetaminophen/ Hydrocodone Bitart (Amery 5/325MG Tab) 1 tab Q4HPRN PRN PO MODERATE PAIN (4-6 PAIN SCALE) 05/23/24 01:00 05/23/24 12:12 Acetaminophen (Tylenol Tablet) 650 mg Q6HP PRN PO TEMP GREATER THAN 100.4 05/23/24 01:00 05/23/24 05:40 Polyethylene Glycol (Miralax 17GM Powder) 17 gm DAILYPRN PRN PO FOR CONSTIPATION 05/23/24 01:00 Cefepime HCl 50 ml @ 12.5 mls/hr Q8HR IV 05/23/24 22:00 Azithromycin 250 ml @ 125 mls/hr DAILY IV 05/23/24 15:00 05/23/24 17:00 Review of Systems: Constitutional: no fever, chill, weight loss HEENT: no eye pain, no hearing loss, no oral lesion, no scleral icterus Heart: no chest pain, no chest pressure Lung: no cough, no dyspnea with exertion Abdomen: see HPI : no pain with urination, normal appearing urine Musculoskeletal: no joint pain, no muscle pain Neurological: no seizure, no loss of sensation, no weakness in extremities Pysch: no depression, no anxiety Derm: no rash, no jaundice Vital Signs Date Time Temp Pulse Resp B/P (MAP) Pulse Ox O2 Delivery O2 Flow Rate FiO2 05/23/24 17:22 97.6 67 18 105/60 (75) 97 97.6 05/23/24 00:46 Room Air* 0 21 Physical exam: General: NAD, AAOX3 HEENT: PERRL, no scleral icterus, normal hearing, gums without lesions or bleeding, oropharynx clear without erythema or exudate. Heart: RRR, no murmur Abdomen: non-distended, mildly distended mildly tender to palpation Extremities: no edema, no cyanosis Neurological: CN II-XII intact, Skin: No rashes, No jaundice Rectal exam: Deferred Labs: Labs Test 05/23/24 04:32 05/23/24 01:48 05/22/24 19:58 05/22/24 19:50 Range/Units White Blood Count 11.6 H 4.4-10.8 10^3/uL Red Blood Count 4.31 4.0-5.20 10^6/uL Hemoglobin 10.9 L 12.2-16.2 g/dL Hematocrit 34.3 L 36.0-46.0 % Mean Corpuscular Volume 79.6 L 80.0-100.0 fL Mean Corpuscular Hemoglobin 25.4 L 28.0-32.0 pg Mean Corpuscular Hemoglobin Concent 31.9 L 32.0-36.0 g/dL Red Cell Distribution Width 17.2 H 11.8-14.3 % Platelet Count 312 140-450 10^3/uL Mean Platelet Volume 7.8 6.9-10.8 fL Neutrophils (%) (Auto) 68.8 37.0-80.0 % Lymphocytes (%) (Auto) 19.3 10.0-50.0 % Monocytes (%) (Auto) 10.6 0.0-12.0 % Eosinophils (%) (Auto) 1.2 0.0-7.0 % Basophils (%) (Auto) 0.1 0.0-2.0 % Neutrophils # (Auto) 8.0 1.6-8.6 10 ^3/uL Lymphocytes # (Auto) 2.2 0.4-5.4 10 ^3/uL Monocytes # (Auto) 1.2 0-1.3 10 ^3/uL Eosinophils # (Auto) 0.1 0-0.8 10 ^3/uL Basophils # (Auto) 0 0-0.2 10 ^3/uL Nucleated Red Blood Cells 0.0 % Hemoglobin A1c 5.9 H <5.7 % A1C Iron Level 15 L 50-170 ug/dL Total Iron Binding Capacity 331 250-425 ug/dL Percent Iron Saturation 4.5 L 15-50 % Ferritin 51.2 10-291 ng/mL Vitamin B12 Level 288 211-911 pg/mL Folic Acid 8.17 >5.38 ng/mL Sodium Level 133 L 136-145 mmol/L Potassium Level 3.4 L 3.5-5.1 mmol/L Chloride Level 103 98-107 mmol/L Carbon Dioxide Level 23 20-31 mmol/L Anion Gap 7 5-15 Blood Urea Nitrogen 10 9-23 mg/dL Creatinine 1.04 H 0.550-1.02 mg/dL Glomerular Filtration Rate Calc 71 >90 mL/min BUN/Creatinine Ratio 9.6 L 10.0-20.0 Serum Glucose 106 74-106 mg/dL Lactic Acid Level 0.6 0.4-2.0 mmol/L Calcium Level 8.9 8.7-10.4 mg/dL Total Bilirubin 0.7 0.2-1.0 mg/dL Aspartate Amino Transferase (AST) 12 L 13-40 U/L Alanine Aminotransferase (ALT) 18 7-40 U/L Alkaline Phosphatase 128 H 46-116 U/L Total Protein 6.6 5.7-8.2 g/dL Albumin 3.9 3.2-4.8 g/dL Triglycerides Level 105 < 150 mg/dL Cholesterol Level 137 < 200 mg/dL LDL Cholesterol 77 < 100 mg/dL HDL Cholesterol 46 40-59 mg/dL Thyroid Stimulating Hormone (TSH) 2.84 0.55-4.78 uIU/mL Beta HCG, Quantitative 0.3 L 1.5-4.2 mIU/mL Lipase 30 12-53 U/L Urine Color Colorless Yellow Urine Clarity Turbid H Clear Urine pH 6.5 5.0-9.0 Urine Specific [place] 1.008 1.001-1.035 Urine Protein Trace H Negative Urine Ketones Negative Negative Urine Blood Trace H Negative /uL Urine Nitrite Negative Negative Urine Bilirubin Negative Negative Urine Urobilinogen Normal Negative mg/dL Urine Leukocyte Esterase 3+ Negative /uL Urine RBC 4 0 - 4 /hpf Urine Microscopic WBC 36 H 0-5 /HPF Urine Squamous Epithelial Cells Many <5 /hpf Urine Bacteria Few H None Seen /hpf Urine Yeast (Budding) Occasional None Seen /hpf Urine Glucose Normal Normal mg/dL Urine Opiates Screen Neg NEGATIVE Urine Fentanyl Screen Neg NEGATIVE Urine Barbiturates Screen Neg NEGATIVE Urine Phencyclidine Screen Neg NEGATIVE Urine Amphetamines Screen Pos NEGATIVE Urine Benzodiazepines Screen Neg NEGATIVE Urine Cocaine Screen Neg NEGATIVE Urine Cannabinoids Screen Neg NEGATIVE Imaging: No acute findings Assessment: 1. Rectocele/cystocele 2. Hemorrhoids 3. Constipation likely secondary to 1. Plan: 1. Outpatient colonoscopy 2. Avoid pain medication 3. Outpatient follow up with Gyne/urology/urogynecology 4. High-fiber diet and stool softener Date of Service: May 23, 2024 Billing Provider: CHRISTIANO LAGUNAS MD Common Visit Codes: [id number] INP/OBS CARE (HIGH) CHRISTIANO LAGUNAS MD May 23, 2024 18:35
[2024-05-23] MEDS ORDERED: cefTRIAXone 1GM/50ML D5W 50 ML IV SCH (21:00)
[2024-05-23] MEDS: CEFEPIME 1GM/ 50ML 50 ML IV SCH (21:35)
[2024-05-24] VITALS (7 sets, daily range): BP systolic 100–143; BP diastolic 56–69; PULSE 64–85; RESP 17–19; TEMP 98–98.6; O2SAT 93–100
[2024-05-24 06:17] LABS: Basophils # (auto) 0 10 ^3/uL (0-0.2); Eosinophils # (auto) 0.2 10 ^3/uL (0-0.8); Lymphocytes # (auto) 1.8 10 ^3/uL (0.4-5.4); Mean Corpuscular Hgb Conc. 32.3 g/dL (32.0-36.0); Monocytes # (auto) 1.1 10 ^3/uL (0-1.3); Neutrophils # (auto) 6.5 10 ^3/uL (1.6-8.6)
[2024-05-24 06:22] LABS: Basophils % (auto) 0.1 % (0.0-2.0); Eosinophils % (auto) 1.6 % (0.0-7.0); Hematocrit 29.8 % (36.0-46.0); Hemoglobin 9.6 g/dL (12.2-16.2); Lymphocytes % (auto) 18.6 % (10.0-50.0); Mean Corpuscular Hemoglobin 25.8 pg (28.0-32.0); Mean Corpuscular Volume 79.8 fL (80.0-100.0); Monocytes % (auto) 11.2 % (0.0-12.0); Neutrophils % (auto) 68.5 % (37.0-80.0); Platelet Count (auto) 257 10^3/uL (140-450); Red Blood Cells 3.74 10^6/uL (4.0-5.20); Red Cell Distribution Width 17.5 % (11.8-14.3); White Blood Cell 9.5 10^3/uL (4.4-10.8)
[2024-05-24 06:38] LABS: Anion Gap 8 (5-15); Carbon Dioxide 23 mmol/L (20-31); Potassium 3.6 mmol/L (3.5-5.1); Sodium 138 mmol/L (136-145)
[2024-05-24 06:44] LABS: Glucose 78 mg/dL (74-106)
[2024-05-24 06:45] LABS: BUN/Creatinine Ratio 7.2 (10.0-20.0); Blood Urea Nitrogen < 5 mg/dL (9-23); Calcium 8.5 mg/dL (8.7-10.4); Chloride 107 mmol/L (98-107)
[2024-05-24] MEDS: PANTOPRAZOLE 40 MG TAB PO ONE (10:00)
--- NOTE | 2024-05-24 10:39 | DVHPNRES ---
Progress Note Date Seen: May 24, 2024 Resident Creating Document: STEVEN RODRIGEZ RESIDENT Medical Necessity Reason Pt with a Central, PICC or Fol: No Subjective Review of Systems This is a 38 year-old female with past medical history of hypothyroidism, STI, hemorrhoid and chronic constipation presented to the ED for abdominal pain, fever, chills ,nausea and vomiting for 2 days prior to this admission. patient stated that she has bilateral flank pain started 2 days ago which was 8/10, intermittent in nature radiates to the lower abdomen and associated with fever, chills, nausea and vomiting. patient also complaining of frequency, urgency dysuria and burning sensation of urine for the same duration. Patient was seen and examined on the bedside. She is alert oriented x3. No overnight events and mentioned feeling better than yesterday and complains of bloating, Lt lower back pain. Objective vital signs Vital Sign Date Time Temp Pulse Resp B/P (MAP) Pulse Ox O2 Delivery O2 Flow Rate FiO2 05/24/24 08:05 98.2 74 17 100/56 (71) 95 98.2 05/23/24 00:46 Room Air* 0 21 Total Intake and Output 05/23/24 05/23/24 05/24/24 14:59 22:59 06:59 Intake Total 250 ml 450 ml Balance 250 ml 450 ml medications Current Medications Medications Dose Ordered Sig/Shruthi Route Start Time Stop Time Status Last Admin Dose Admin Levothyroxine Sodium 25 mcg QAM@0600 PO 05/23/24 06:00 05/24/24 05:32 25 MCG Acetaminophen/ Hydrocodone Bitart 1 tab Q4HPRN PRN PO 05/23/24 01:00 05/23/24 22:50 1 TAB Acetaminophen 650 mg Q6HP PRN PO 05/23/24 01:00 05/24/24 05:39 650 MG Cefepime HCl 50 ml @ 12.5 mls/hr Q8HR IV 05/23/24 22:00 05/24/24 05:32 12.5 MLS/HR Azithromycin 250 ml @ 125 mls/hr DAILY IV 05/23/24 15:00 05/24/24 09:49 125 MLS/HR Pantoprazole Sodium 40 mg DAILY@0600 PO 05/25/24 06:00 Examination Physical examination: General Appearance: Alert, Oriented X3, Cooperative, No acute distress HEENT: Atraumatic, PERRLA, EOMI, Mucous membrane moist/pink Respiratory: Clear to auscultation, Normal air movement Cardiovascular: Regular rate, Normal S1, Normal S2, No murmurs, no chest wall tenderness Abdominal: No CVA tenderness, Normal bowel sounds, Soft, No hepatosplenomegaly, No masses Extremities: No clubbing, No cyanosis, No edema, Normal pulses, No tenderness/swelling Skin: No rashes, No breakdown, No significant lesion Neuro: Normal gait, Normal speech, Strength at 5/5 X4 ext, Normal tone, Sensation intact, grossly intact cranial nerves. Psych/Mental Status: Mental status NL, Mood NL laboratory and microbiology Laboratory Tests 05/24/24 05:30 Test 05/24/24 05:30 Range/Units Serum Glucose 78 74-106 mg/dL Microbiology Date/Time Source Procedure Growth Status 05/23/24 01:48 Blood Blood Culture - Preliminary NO GROWTH AFTER 24 HOURS OF INCUBATION. Resulted Labs and/or images reviewed: Labs reviewed by me, Image(s) reviewed by me Problem List/Assessment/Plan Problem List/Assessment/Plan Assessment/Plan # Fluid responsive septic shock, likely due to UTI # Acute complicated UTI/ pyelonephritis # Hypotension secondary to above - Patient presented with elevated temperature and leucocytosis - U/A consistent with UTI - CT scan showed mild right renal upper pole asymmetry perinephric fat stranding with mild stranding of the left renal pelvis and left proximal ureter - Preliminary blood culture revealed no growth in 24 hrs of incubation and urine C/S showed mixed neftali. - Full liquid diet and will advance to regular diet if patient able to tolerate this. - IV cefepime 1 gm b.i.d and IV azithromycin 500 mg daily # History of hypothyroidism - Continue levothyroxine 25 mcg at q.a.m. # History of STI - Culture of vaginal swab on 04/10/23 demonstrated Neisseria gonorrhoeae - Pending Chlamydia/GC nucleic acid amplification test - Obgyn recommended mild cystocele and kegel exercise, outpatient follow up for speculum examination. # History of hemorrhoids, likely grade 2 # Possible chronic iron deficiency anaemia due to hemorrhoidal bleeding - Per patient, she has a bulging during bowel movement which reduces by itself - Lactulose 15ml once. - Iron panel demonstrated low iron, normal TIBC, low saturation and normal ferritin. - GI recommended outpatient colonoscopy. # Methamphetamine use disorder - UDS is positive for amphetamine - Counseled for 22 minutes about methamphetamine use cessation CODE STATUS: Goal of care discussed for 20 minutes, full code Case discussed with Dr. Mccray Plan discussed with: Patient, Other (RN) My Orders My Orders Orders - STEVEN RODRIGEZ RESIDENT Procedure Category Date Status Time Cefepime 1gm/ 50ml PHA 05/23/24 In Process (Maxipime 1gm/50ml) 22:00 Azithromycin 500mg/ PHA 05/23/24 In Process 250ml (Zithromax 50 15:00 Pantoprazole Tablet PHA 05/25/24 In Process (Protonix Tablet) 06:00 Full Liq Diet DIET 05/24/24 Transmitted Lunch Addendum Addendum Addendum I was physically present for the gomez portions of the service provided to patient by THE RESIDENT. I have reviewed the documentation, discussed the case with resident and agree with the resident's documentation except as noted. Also the patient's clinical case was discussed with the patient's nurse. This medical document was created using an electronic medical record system with computerized dictation system. Although this document has been carefully reviewed, there might still be some phonetic and typographical errors. These areas are purely typographical due to imperfections of the software programs, and do not reflect any compromise in the patient's medical care. Late signature. Date of Service: May 24, 2024 Billing Provider: LESTER MCCRAY MD Common Visit Codes: [id number] INP/OBS CARE(HIGH) Secondary Visit Codes: [id number] CHNG SMOKING >10MIN (Counseled 22 minutes about amphetamine use cessation), [id number] CARE PLAN 30 MINUTES (20 minutes) STEVEN RODRIGEZ RESIDENT May 24, 2024 10:39 LESTER MCCRAY MD May 25, 2024 21:09
[2024-05-24] MEDS: PANTOPRAZOLE 40 MG TAB PO SCH (12:09)
[2024-05-24] MEDS: LACTULOSE 20Gm/30ML SOLN PO ONE (12:09)
[2024-05-25 01:00] VITALS: BP 104/57; PULSE 73; RESP 18; TEMP 99.1; O2SAT 97
[2024-05-25 05:00] VITALS: BP 104/63; PULSE 72; RESP 18; TEMP 98.3; O2SAT 96
[2024-05-25 06:06] LABS: Chlamydia Trachomatis, NAA Negative (Negative); Neisseria gonorrhoeae, NAA Negative (Negative)
[2024-05-25 07:00] LABS: Basophils # (auto) 0 10 ^3/uL (0-0.2); Eosinophils # (auto) 0.2 10 ^3/uL (0-0.8); Neutrophils # (auto) 4.1 10 ^3/uL (1.6-8.6)
[2024-05-25 07:02] LABS: Basophils % (auto) 0.3 % (0.0-2.0); Eosinophils % (auto) 2.5 % (0.0-7.0); Hematocrit 30.2 % (36.0-46.0); Hemoglobin 9.9 g/dL (12.2-16.2); Lymphocytes # (auto) 2.3 10 ^3/uL (0.4-5.4); Lymphocytes % (auto) 32.6 % (10.0-50.0); Mean Corpuscular Hemoglobin 25.6 pg (28.0-32.0); Mean Corpuscular Hgb Conc. 32.6 g/dL (32.0-36.0); Mean Corpuscular Volume 78.5 fL (80.0-100.0); Monocytes # (auto) 0.5 10 ^3/uL (0-1.3); Monocytes % (auto) 7.5 % (0.0-12.0); Neutrophils % (auto) 57.1 % (37.0-80.0); Nucleated Red Blood Cells % 0.1 %; Platelet Count (auto) 310 10^3/uL (140-450); Red Blood Cells 3.85 10^6/uL (4.0-5.20); Red Cell Distribution Width 17.5 % (11.8-14.3); White Blood Cell 7.1 10^3/uL (4.4-10.8)
[2024-05-25 07:11] LABS: Calcium 9.2 mg/dL (8.7-10.4); Chloride 107 mmol/L (98-107); Potassium 3.9 mmol/L (3.5-5.1); Sodium 139 mmol/L (136-145)
[2024-05-25 07:12] LABS: Anion Gap 10 (5-15); Carbon Dioxide 22 mmol/L (20-31)
[2024-05-25 07:17] LABS: Glucose 80 mg/dL (74-106)
[2024-05-25 07:23] LABS: BUN/Creatinine Ratio 6.3 (10.0-20.0); Blood Urea Nitrogen < 5 mg/dL (9-23)
[2024-05-25 09:00] VITALS: BP 107/66; PULSE 84; RESP 18; TEMP 98.3; O2SAT 97
[2024-05-25] MEDS ORDERED: CIPR500T4 PO (13:02)
--- NOTE | 2024-05-25 13:09 | DVHDSRES ---
Discharge Summary Date of Admission Resident Creating Document: ANDRÉS RUTHERFORD RESIDENT May 22, 2024 at 23:44 Date of Discharge: May 25, 2024 Admitting Diagnosis Acute abdominal pain Wounds: No wounds present at this time Labs/Diagnostic Data: Laboratory Results Test 05/25/24 05:33 05/23/24 04:32 05/23/24 01:48 05/22/24 19:58 White Blood Count 7.1 10^3/uL (4.4-10.8) Red Blood Count 3.85 10^6/uL (4.0-5.20) Hemoglobin 9.9 g/dL (12.2-16.2) Hematocrit 30.2 % (36.0-46.0) Mean Corpuscular Volume 78.5 fL (80.0-100.0) Mean Corpuscular Hemoglobin 25.6 pg (28.0-32.0) Mean Corpuscular Hemoglobin Concent 32.6 g/dL (32.0-36.0) Red Cell Distribution Width 17.5 % (11.8-14.3) Platelet Count 310 10^3/uL (140-450) Mean Platelet Volume 7.9 fL (6.9-10.8) Neutrophils (%) (Auto) 57.1 % (37.0-80.0) Lymphocytes (%) (Auto) 32.6 % (10.0-50.0) Monocytes (%) (Auto) 7.5 % (0.0-12.0) Eosinophils (%) (Auto) 2.5 % (0.0-7.0) Basophils (%) (Auto) 0.3 % (0.0-2.0) Neutrophils # (Auto) 4.1 10 ^3/uL (1.6-8.6) Lymphocytes # (Auto) 2.3 10 ^3/uL (0.4-5.4) Monocytes # (Auto) 0.5 10 ^3/uL (0-1.3) Eosinophils # (Auto) 0.2 10 ^3/uL (0-0.8) Basophils # (Auto) 0 10 ^3/uL (0-0.2) Nucleated Red Blood Cells 0.1 % Sodium Level 139 mmol/L (136-145) Potassium Level 3.9 mmol/L (3.5-5.1) Chloride Level 107 mmol/L (98-107) Carbon Dioxide Level 22 mmol/L (20-31) Anion Gap 10 (5-15) Blood Urea Nitrogen < 5 mg/dL (9-23) Creatinine 0.80 mg/dL (0.550-1.02) Glomerular Filtration Rate Calc 97 mL/min (>90) BUN/Creatinine Ratio 6.3 (10.0-20.0) Serum Glucose 80 mg/dL (74-106) Calcium Level 9.2 mg/dL (8.7-10.4) Hemoglobin A1c 5.9 % A1C (<5.7) Iron Level 15 ug/dL (50-170) Total Iron Binding Capacity 331 ug/dL (250-425) Percent Iron Saturation 4.5 % (15-50) Ferritin 51.2 ng/mL (10-291) Vitamin B12 Level 288 pg/mL (211-911) Folic Acid 8.17 ng/mL (>5.38) Lactic Acid Level 0.6 mmol/L (0.4-2.0) Total Bilirubin 0.7 mg/dL (0.2-1.0) Aspartate Amino Transferase (AST) 12 U/L (13-40) Alanine Aminotransferase (ALT) 18 U/L (7-40) Alkaline Phosphatase 128 U/L (46-116) Total Protein 6.6 g/dL (5.7-8.2) Albumin 3.9 g/dL (3.2-4.8) Triglycerides Level 105 mg/dL (< 150) Cholesterol Level 137 mg/dL (< 200) LDL Cholesterol 77 mg/dL (< 100) HDL Cholesterol 46 mg/dL (40-59) Thyroid Stimulating Hormone (TSH) 2.84 uIU/mL (0.55-4.78) Beta HCG, Quantitative 0.3 mIU/mL (1.5-4.2) Lipase 30 U/L (12-53) Test 05/22/24 19:50 Urine Color Colorless (Yellow) Urine Clarity Turbid (Clear) Urine pH 6.5 (5.0-9.0) Urine Specific [place] 1.008 (1.001-1.035) Urine Protein Trace (Negative) Urine Ketones Negative (Negative) Urine Blood Trace /uL (Negative) Urine Nitrite Negative (Negative) Urine Bilirubin Negative (Negative) Urine Urobilinogen Normal mg/dL (Negative) Urine Leukocyte Esterase 3+ /uL (Negative) Urine RBC 4 /hpf (0 - 4) Urine Microscopic WBC 36 /HPF (0-5) Urine Squamous Epithelial Cells Many /hpf (<5) Urine Bacteria Few /hpf (None Seen) Urine Yeast (Budding) Occasional /hpf (None Urine Glucose Normal mg/dL (Normal) Urine Opiates Screen Neg (NEGATIVE) Urine Fentanyl Screen Neg (NEGATIVE) Urine Barbiturates Screen Neg (NEGATIVE) Urine Phencyclidine Screen Neg (NEGATIVE) Urine Amphetamines Screen Pos (NEGATIVE) Urine Benzodiazepines Screen Neg (NEGATIVE) Urine Cocaine Screen Neg (NEGATIVE) Urine Cannabinoids Screen Neg (NEGATIVE) Chlamydia trachomatis (JANINA) Negative (Negative) Neisseria gonorrhoeae (JANINA) Negative (Negative) Other Laboratory Tests 05/25/24 05:33 Brief Hx & Hospital Course: Hospitalization course: This is a 38 year-old female with past medical history of hypothyroidism, STI, hemorrhoid and chronic constipation presented to the ED for abdominal pain, fever, chills ,nausea and vomiting for 2 days prior to this admission. patient stated that she has bilateral flank pain started 2 days ago which was 8/10, intermittent in nature radiates to the lower abdomen and associated with fever, chills, nausea and vomiting. patient also complaining of frequency, urgency dysuria and burning sensation of urine for the same duration. CT of the abdomen and pelvis showed mild right renal upper pole asymmetric perinephric fat stranding with mild stranding of the left renal pelvis and left proximal ureter. These findings correlated with positive bilateral costovertebral angle tenderness was consistent with pyelonephritis. Patient was started on IV ceftriaxone and azithromycin which was then switched to cefepime. Blood cultures came back negative after 48 hours of incubation and urine culture was positive but showing possible contamination with multiple colonies. Today, patient was seen and evaluated at bedside. The patient is alert and oriented in person, place and time, patient is completely asymptomatic and has no complaints at this time. The patient will be discharged with ciprofloxacin 500 mg b.i.d. for five additional days to complete treatment for pyelonephritis. Patient agrees and understands the plan. We will discharge the patient to discharge Clinic and needs to follow up with her primary care doctor as outpatient. Physical examination day of discharge: General Appearance: Alert, Oriented X3, Cooperative, No acute distress HEENT: Atraumatic, PERRLA, EOMI, Mucous membrane moist/pink Respiratory: Clear to auscultation, Normal air movement Cardiovascular: Regular rate, Normal S1, Normal S2, No murmurs, no chest wall tenderness Abdominal: No CVA tenderness, Normal bowel sounds, Soft, No hepatosplenomegaly, No masses Extremities: No clubbing, No cyanosis, No edema, Normal pulses, No tenderness/swelling Skin: No rashes, No breakdown, No significant lesion Neuro: Normal gait, Normal speech, Strength at 5/5 X4 ext, Normal tone, Sensation intact, grossly intact cranial nerves. Psych/Mental Status: Mental status NL, Mood NL Discharge plan: -re-Counseled about amphetamine use cessation for 16 minutes -continue at home with ciprofloxacin 500 mg b.i.d. p.o. for five additional days to complete treatment -follow-up with the discharge Clinic in one week -follow-up with her PCP. Discussed with Dr. Mccray Consults/Reason for consult OBGYN for chlamydia and gonorrhea rule out GI was consulted for hemorrhoids and recommended colonoscopy as an outpatient. Operations or Procedures Exam: CT CT AB PEL WO CON-NO ORAL OR IV History: pain Comparison Study: 04/10/2023 TECHNIQUE: Multidetector CT of the abdomen and pelvis without contrast. Axial, coronal and sagittal multiplanar reformats were obtained from the axial data set by the technologist. Radiation Dose Information: CT Dose: CTDI volume is 11.39 mGy. Dose-length product is 608.23 mGy*cm FINDINGS: Bibasilar atelectasis. Partially visualized heart is unremarkable. Mild hepatomegaly. Otherwise, liver, spleen, gallbladder, pancreas and adrenal glands unremarkable. 2 cm left renal upper pole cyst. Mild bilateral hydro nephrosis with no obstructing calculus noted. Mild right renal upper pole asymmetric perinephric fat stranding. Mild fat stranding over the left renal pelvis and proximal ureter. Mild wall thickening of the urinary bladder which is most likely from inadequate distension. Mild prominence of the uterus. Bilateral adnexa are unremarkable. Small hiatal hernia. Stomach is unremarkable. Small bowel loops unremarkable. Appendix is unremarkable. Small to moderate amount of fecal material within the colon. E No evidence of intraperitoneal free air or free fluid. No evidence of aortic aneurysm. No significant lymphadenopathy. Tiny fat containing umbilical hernia. The soft tissues are otherwise unremarkable. 9 mm hemangioma of the superior anterior L4 vertebral body. No significant degenerative changes of the lumbar spine. IMPRESSION: Mild right renal upper pole asymmetric perinephric fat stranding with mild stranding of the left renal pelvis and left proximal ureter. Correlate for infectious process. Mild wall thickening of the urinary bladder which is most likely from inadequate distension. Correlation with urinalysis is recommended to exclude cystitis. Final Diagnosis/Problems List Fluid responsive septic shock, likely due to pyelonephritis Acute complicated UTI, due to pyelonephritis Hypotension seconary to above History of hypothyroidism History of STI History of hemorrhoids, likely grade 2 Possible chronic iron defieciency anaemia due to hemorrhoidal bleeding Methamphetamine use disorder Discharge Disposition: Home Discharge Instruct/Medications Diet: Regular Activity: No Restrictions, As Tolerated Follow Up/Referral: -discharge Clinic in one week -F/U with her primary care doctor in one week Medications: Ciprofloxacin 500 mg b.i.d. for five days to complete treatment. Discharge Statement: "Patient was advised to return to the ER or call 911 if any headaches, dizziness, shortness of breath, chest pain, abdominal pain, bleeding, fevers, or worsening of medical condition. Patient was counseled about treatment plan, medications, possible side effects, patientverbalized understanding. All questions were answered to the best of my ability. This discharge took greater then 30 minutes in planning, reviewing documentation, counseling the patient, and discussing with other team members." Addendum Addendum Addendum I was physically present for the gomez portions of the service provided to patient by THE RESIDENT. I have reviewed the documentation, discussed the case with resident and agree with the resident's documentation except as noted. Also the patient's clinical case was discussed with the patient's nurse. This medical document was created using an electronic medical record system with computerized dictation system. Although this document has been carefully reviewed, there might still be some phonetic and typographical errors. These areas are purely typographical due to imperfections of the software programs, and do not reflect any compromise in the patient's medical care. Late signature. Date of Service: May 25, 2024 Billing Provider: LESTER MCCRAY MD Common Visit Codes: 64741-DPY/OBS DISCH DAY >30min Secondary Visit Codes: 27362-BGTIN CHNG SMOKING >10MIN (Re-Counseled about amphetamine use cessation for 16 minutes) ANDRÉS RUTHERFORD RESIDENT May 25, 2024 13:09 LESTER MCCRAY MD May 25, 2024 21:13
[2024-05-25 13:30] VITALS: BP 111/72; PULSE 65; RESP 17; TEMP 97.3; O2SAT 96
== END 2024-05-25 18:20 | disposition home or self-care (01) | DRG 720 ==
LOC: ER 19:12 → OVERFLOW 23:44 → WEST WING 05-23 15:27
PROVIDERS: ADMIT Internal Medicine; ATTEND Internal Medicine
DX: A41.9 Sepsis, unspecified organism (principal); N17.0 Acute kidney failure with tubular necrosis; R65.21 Severe sepsis with septic shock; E87.1 Hypo-osmolality and hyponatremia; I95.9 Hypotension, unspecified; D50.9 Iron deficiency anemia, unspecified; E03.9 Hypothyroidism, unspecified; E11.9 Type 2 diabetes mellitus without complications; K59.09 Other constipation; K64.9 Unspecified hemorrhoids; N10 Acute pyelonephritis; N81.10 Cystocele, unspecified; N81.6 Rectocele; Z82.49 Family history of ischemic heart disease and other diseases of the circulatory system; Z83.3 Family history of diabetes mellitus; Z79.899 Other long term (current) drug therapy
CPT/HCPCS: 36415; 74176; 80048; 80053; 80061; 80307; 81001; 82607; 82728; 82746; 83036; 83540; 83550; 83605; 83690; 84443; 84702; 85025; 87040; 87086; G0378; J2405